=== PATIENT | female | born 1965 | race Caucasian/White ===

== ENCOUNTER 2018-02-10 09:33 | Emergency (ER) | payer OTHER ==
[~2018-02-10] VITALS: Ht 160 cm; Wt 99.2 kg
[~2018-02-10 09:33] MED LIST: ASCORBIC ACID500 M3 PO; BACITRACIN ZIN1 EAC1 TP; BACTRIM,SEPT1 TABLET PO; BAYER ASPIRIN325 M1 PO; COLACE100 MG PO; DULCOLAX10 MG PR; ENDOCET 5-3251 EACH PO; FLEET ENEMA-AD118 ML PR; FOLIC ACID1 MG PO; LIDODERM 5% P1 PATCH TD; LOSARTAN POTASS50 MG PO; LOSARTAN-HCTZ1 EACH PO; LOVENOX40 MG/0.4 SC; MORPHINE SULFAT15 M1 PO; MOTRIN800 MG PO; Motrin PO; NOHOMEMEDS; OXYCODONE HCL5 MG PO; OxyCONTIN PO; PEPCID20 MG PO; Proventil,Ventolin H IH; ROXICODONE5 MG PO; SENNA8.6 MG PO; THERAGRAN1 TABLET PO; TYLENOL WITH C1 EACH PO; VITAMIN D-32000 UNI2 PO; VITAMIN D1000 UNIT PO
[2018-02-10] MEDS ORDERED: SERTRALINE HCL25 MG PO (10:43)
[2018-02-10] MEDS ORDERED: ATORVASTATIN CA10 MG PO (10:43)
[2018-02-10] MEDS ORDERED: SERTRALINE HCL50 MG PO (10:44)
[2018-02-10] MEDS ORDERED: VIT C (10:45)
[2018-02-10] MEDS ORDERED: VIT D (10:45)
[2018-02-10 11:13] VITALS: BP 123/89
== END 2018-02-10 11:14 | disposition home or self-care (01) ==
LOC: EME 09:33
PROC: 2W3DX1Z Immobilization of Left Lower Arm using Splint (ICD-10-PCS; principal; 2018-02-10)
DX: S52.572A Other intraarticular fracture of lower end of left radius, initial encounter for closed fracture (principal); W17.89XA Other fall from one level to another, initial encounter; Y92.812 Truck as the place of occurrence of the external cause; Z88.8 Allergy status to other drugs, medicaments and biological substances
CPT/HCPCS: 73090; 73110; 99281; 99283